=== PATIENT | male | born 1980 | race Two or more races ===

== ENCOUNTER 2021-09-01 08:44 | Emergency (ER) | payer SELFPAY ==
[~2021-09-01] VITALS: Ht 182.9 cm; Wt 90.7 kg
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
--- NOTE | 2021-09-01 09:02 | NUR ---
SEEN AND EXAMIND BY .
[2021-09-01] MEDS ORDERED: HYDROCODONE/APAP 10/325MG TABLET ONE (09:05)
[2021-09-01] MEDS ORDERED: HYDROCODONE/APAP 10/325MG TABLET PO ONE (09:30)
--- NOTE | 2021-09-01 09:36 | NUR ---
PT IS BACK FROM THE CT SCAN.
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
[2021-09-01] MEDS ORDERED: TRAM50TA2 PO (11:53)
[2021-09-01] MEDS ORDERED: IBUP-1955 PO (11:53)
[2021-09-01 12:01] VITALS: BP 135/81
--- NOTE | 2021-09-01 12:01 | NUR ---
Patient discharged to home in stable condition. Written and verbal after care instructions given. Patient verbalizes understanding of instruction.
== END 2021-09-01 12:02 | disposition home or self-care (01) ==
LOC: ER 08:47
DX: S33.5XXA Sprain of ligaments of lumbar spine, initial encounter (principal); S70.01XA Contusion of right hip, initial encounter; S09.8XXA Other specified injuries of head, initial encounter; V49.59XA Passenger injured in collision with other motor vehicles in traffic accident, initial encounter; Y93.89 Activity, other specified; Y92.488 Other paved roadways as the place of occurrence of the external cause; Y99.8 Other external cause status
CPT/HCPCS: 70450-TC; 72125-TC; 72131-TC; 72192-TC